=== PATIENT | female | born 1970 | race Caucasian/White ===

== ENCOUNTER 2022-07-15 17:10 | Emergency (ER) | payer BC, SELFPAY ==
[2022-07-15 17:20] VITALS: BP 152/84; PULSE 102; RESP 14; TEMP 36.5; O2SAT 99
[2022-07-15 17:22] VITALS: BP 152/84; PULSE 102; RESP 14; TEMP 36.5; O2SAT 99
--- NOTE | 2022-07-15 17:25 | ED.URI ---
HPI - URI/Sore Throat General Chief Complaint: Upper Respiratory Infection Stated Complaint: sinus infection Source: patient and RN notes reviewed Mode of arrival: ambulatory Limitations: no limitations History of Present Illness HPI Narrative: 52 year old female presented for complaints of intermittent sinus pressure for 5 days with a foul smell occasionally. Not taking anything for symptoms. Denies cough, sob, wheezing, n/v/d/f/c. States she had a cold and symptoms resolved a couple weeks ago. MD elicited complaint: cough Related Data Allergies Allergy/AdvReac Type Severity Reaction Status Date / Time bacitracin Allergy Unknown Unknown Verified 07/15/22 17:22 polymyxin B Allergy Unknown Unknown Verified 07/15/22 17:22 Sulfa (Sulfonamide Allergy Unknown Unknown Verified 07/15/22 17:22 Antibiotics) Review of Systems Review of Systems: CONSTITUTIONAL: Denies malaise, chills, sweats, fever EYES: Denies visual changes, redness, or discharge ENT: Reports rhinorrhea, congestion, sinus pain, denies otalgia, sore throat CARDIOVASCULAR: Denies chest pain, palpitations, edema RESPIRATORY: Denies dyspnea GASTROINTESTINAL: Denies abdominal pain, nausea, vomiting, diarrhea SKIN: Denies rash or itching MUSCULOSKELETAL: Denies myalgia NEUROLOGIC: Denies headache [facility] Past Medical History Medical History (Updated 07/15/22 @ 17:42 by Corina Ryan APRN) Hyperlipidemia, acquired Lichen simplex Multinodular goiter Family History Family History Mother Family history of rheumatoid arthritis Family history of diabetes mellitus in first degree relative Grandparent Carcinoma of colon Family history of malignant neoplasm of kidney Other Diabetes mellitus Social History Social History Smoking status: Never smoker Alcohol intake: current Exam Narrative: GENERAL: mildly ill-appearing, nontoxic no acute distress. HEAD: Normocephalic EYES: PERRLA, conjunctivae clear ENT: Mucous membranes moist. TMs pearly rutledge with dull light reflex bilaterally; no tragal tenderness. Oropharynx erythematous without lesions or exudate, no drooling, no hoarseness, no trismus, uvula midline. NECK: Irregular, swelling, multiple nodules with goiter CHEST: Clear to auscultation, breath sounds equal. HEART: Regular rate and rhythm. No murmur heard. SKIN: Warm, dry, no rash. NEURO: Alert and oriented x3. Course Course Emergency Course: Patient is aware of diagnosis, understands and agrees to treatment plan. Anticipatory guidance given. Patient agrees to follow-up as directed and is aware of reasons to seek care at the emergency department. Portions of this record may have been created with voice recognition software Level of Care: Express Care Visit Vital Signs Vital signs: Vital Signs Temperature 97.7 F 07/15/22 17:20 Pulse Rate 102 H 07/15/22 17:20 Respiratory Rate 14 07/15/22 17:20 Blood Pressure 152/84 H 07/15/22 17:20 Pulse Oximetry 99 07/15/22 17:20 Oxygen Delivery Room Air 07/15/22 17:20 Temperature 97.7 F 07/15/22 17:22 Pulse Rate 102 H 07/15/22 17:22 Respiratory Rate 14 07/15/22 17:22 Blood Pressure 152/84 H 07/15/22 17:22 Pulse Oximetry 99 07/15/22 17:22 Oxygen Delivery Room Air 07/15/22 17:22 reviewed MDM - URI/Sore Throat MDM Narrative Medical decision making narrative: Discussed physical exam findings including the importance of f/u for multinodular goiter history. Advised supportive measures and signs/symptoms to go to the ER. Pt is appropriate for outpt treatment and f/u. Differential Diagnosis Differential diagnosis: Likely upper respiratory infection, sinusitis, viral infection and pharyngitis Discharge Plan Discharge Clinical Impression: Neck swelling Upper respiratory infection Qualifiers: URI type: unspecified URI Qualified
== END 2022-07-15 17:39 | disposition home or self-care (01) ==
PROVIDERS: Emergency Provider Nurse Practitioner Family
DX: R22.1 Localized swelling, mass and lump, neck (principal); J06.9 Acute upper respiratory infection, unspecified; E78.5 Hyperlipidemia, unspecified; L28.0 Lichen simplex chronicus; E04.2 Nontoxic multinodular goiter
CPT/HCPCS: 99213; G0463